=== PATIENT | female | born 1980 | race American Indian/Alaskan Native ===

== ENCOUNTER 2016-08-29 20:06 | Emergency (ER) | payer OTHER ==
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
[2016-08-29] MEDS ORDERED: MOTRIN PO ONE (23:24)
[2016-08-29 23:56] VITALS: BP 142/100
== END 2016-08-29 23:55 | disposition home or self-care (01) ==
LOC: ED 20:06
DX: S46.812A Strain of other muscles, fascia and tendons at shoulder and upper arm level, left arm, initial encounter (principal); V89.2XXA Person injured in unspecified motor-vehicle accident, traffic, initial encounter; Y93.89 Activity, other specified; Y99.8 Other external cause status; Y92.89 Other specified places as the place of occurrence of the external cause
CPT/HCPCS: 99283